=== PATIENT | male | born 1940 | race Caucasian/White ===

== ENCOUNTER 2019-07-08 13:40 | Emergency (ER) | payer OTHER, BC ==
[~2019-07-08] VITALS: Ht 175.3 cm; Wt 95.3 kg
[2019-07-08 15:23] VITALS: BP 137/80
== END 2019-07-08 15:35 | disposition home or self-care (01) ==
LOC: ED 13:40
DX: G40.909 Epilepsy, unspecified, not intractable, without status epilepticus (principal); I10 Essential (primary) hypertension; Z86.73 Personal history of transient ischemic attack (TIA), and cerebral infarction without residual deficits; Z90.89 Acquired absence of other organs
CPT/HCPCS: 82962